=== PATIENT | female | born 1995 | race Caucasian/White ===

== ENCOUNTER 2019-09-30 13:33 | Emergency (ER) | payer SELFPAY ==
[~2019-09-30] VITALS: Ht 152.4 cm; Wt 57.7 kg
--- NOTE | 2019-09-30 14:49 | NUR ---
PT WALKED BACK FROM LOBBY TO ROOM AT THIS TIME. NO ACUTE DISTRESS NOTED.
--- NOTE | 2019-09-30 14:52 | NUR ---
REPORT RECEIVED FROM RENU BENITEZ. PLAN OF CARE DISCUSSED
--- NOTE | 2019-09-30 15:03 | NUR ---
THIS IS A 24 YO FEMALE COMING IN FOR FATIGUE, NAUSEA, ABD "PRESSURE"/BLOATING, AND CONSTIPATION FOR 3-4 DAYS. DENIES CHANGES IN DIET, HAS NOT BEEN AROUND ANYONE SICK RECENTLY. A&OX4, ABDOMEN IS SOFT AND SLIGHTLY DISTENDED. NON TENDER TO PALPATION. C/O INDIGESTION, NO RELIEF FROM MEDICATIONS (HAS TAKEN TUMS AND PRILOSEC OTC). SPO2 AND BP MONITORING IN PLACE, PATIENT AMBULATORY WITH STEADY GATI TO RESTROOM, UA CUP PROVIDED. FSBS 110
[2019-09-30] MEDS ORDERED: MAALOX/HYOSCYAMINE/LIDOCAINE 45 ML BTL PO ONE (15:30)
[2019-09-30] MEDS ORDERED: MAALOX/HYOSCYAMINE/LIDOCAINE 45 ML BTL ONE (15:37)
[2019-09-30 15:40] LABS: MICROSCOPIC AUTO
[2019-09-30 15:43] LABS: BASOPHILS # (AUTO) 0.02 x10^3/uL (0-0.1); BASOPHILS % (AUTO) 0 % (0-1); EOSINOPHILS # (AUTO) 0.17 x10^3/uL (0-0.4); EOSINOPHILS % (AUTO) 3 % (1-7); LYMPHOCYTES # (AUTO) 1.54 x10^3/uL (1-3.4); LYMPHOCYTES % (AUTO) 28 % (22-44); MD NO; MEAN CORPUSCULAR HEMOGLOBIN 29.1 pg (27.0-34.8); MEAN CORPUSCULAR HGB CONC 33.4 g/dL (32.4-35.8); MEAN CORPUSCULAR VOLUME 87.3 fL (80-100); MEAN PLATELET VOLUME 7.8 fL (7.4-10.4); MONOCYTES # (AUTO) 0.42 x10^3/uL (0.2-0.8); MONOCYTES % (AUTO) 8 % (2-9); NEUTROPHILS # (AUTO) 3.39 x10^3/uL (1.8-6.8); NEUTROPHILS % (AUTO) 61 % (42-75); PLATELET COUNT 279 x10^3/uL (130-400); RED BLOOD COUNT 4.75 x10^6/uL (3.82-5.3); RED CELL DISTRIBUTION WIDTH 12.3 % (9.6-15.2)
[2019-09-30 15:49] LABS: ALANINE AMINOTRANSFERASE 26 U/L (12-78); ALBUMIN 3.3 g/dL (3.4-5.0); ANION GAP 3 mmol/L (5-15); CALCIUM 8.3 mg/dL (8.5-10.1); CHLORIDE 109 mmol/L (98-107); CREATININE 0.92 mg/dL (0.55-1.02)
--- NOTE | 2019-09-30 15:52 | NUR ---
PATIENT MEDICATED PER EMAR, TOLERATED WELL
[2019-09-30 15:54] LABS: ALKALINE PHOSPHATASE 43 U/L (45-117); BILIRUBIN,TOTAL 0.3 mg/dL (0.2-1.0)
[2019-09-30 16:10] VITALS: BP 113/78
--- NOTE | 2019-09-30 16:46 | NUR ---
TO ROOM FOR RECHECK
--- NOTE | 2019-09-30 17:29 | NUR ---
Patient given discharge instructions and they have confirmed that they understand the instructions. Patient ambulatory with steady gait.
== END 2019-09-30 17:33 | disposition home or self-care (01) ==
LOC: ED 16:08
DX: K29.00 Acute gastritis without bleeding (principal); R10.13 Epigastric pain; R11.2 Nausea with vomiting, unspecified; K59.00 Constipation, unspecified
CPT/HCPCS: 74021; 80053; 81001; 82962; 83690; 84703; 85025; 99284

== ENCOUNTER 2020-02-28 05:11 | Emergency (ER) | payer BC ==
[~2020-02-28] VITALS: Ht 152.4 cm; Wt 56.9 kg
[2020-02-28] MEDS ORDERED: BIRTH CONTROL PO (05:24)
--- NOTE | 2020-02-28 05:26 | NUR ---
PT. TO ED WITH C/O SUDDEN ONSET VB WHILE LIFTING BOXES AT WORK YESTERDAY. PT. REPORTS "MY PERIODS ARE ALWAYS REGULAR, I JUST HAD IT LAST WEEK SO IT'S ABNORMAL FOR ME TO BE BLEEDING NOW". PT. REPORTS SEVERE ABD CRAMPING YESTERDAY AND AGAIN THIS AM. STATES TAKES CONTROL DAILY. HX OF 3 MISCARRIAGE'S IN THE PAST. PT. VERY TEARFUL. WARM BLANKETS PROVIDED.
[2020-02-28] MEDS ORDERED: KETOROLAC 30 MG/1 ML ONE (05:54)
--- NOTE | 2020-02-28 05:55 | NUR ---
PT. OUT OF ROOM FOR IMAGING. AWAITING RETURN.
[2020-02-28] MEDS ORDERED: KETOROLAC 30 MG/1 ML IM ONE (06:00)
--- NOTE | 2020-02-28 06:16 | NUR ---
PT. MEDICATED PER MAR. LAB AT DRAWING BLOOD.
--- NOTE | 2020-02-28 06:26 | NUR ---
STRAIGHT CATH UA COLLECTED PER ORDER; PT. TOLERATED WELL. SAMPLE WALKED TO LAB. PT. AMBULATORY TO BR WITH STEADY GAIT AFTERWARDS.
[2020-02-28 06:30] LABS: BASOPHILS % (AUTO) 1 % (0-1); EOSINOPHILS % (AUTO) 6 % (1-7); LYMPHOCYTES % (AUTO) 43 % (22-44); MEAN CORPUSCULAR HEMOGLOBIN 29.3 pg (27.0-34.8); MEAN PLATELET VOLUME 7.8 fL (7.4-10.4); MONOCYTES % (AUTO) 7 % (2-9); NEUTROPHILS % (AUTO) 44 % (42-75); PLATELET COUNT 254 x10^3/uL (130-400); RED CELL DISTRIBUTION WIDTH 12.1 % (9.6-15.2)
[2020-02-28 06:36] VITALS: BP 119/83
[2020-02-28 06:38] LABS: MD NO
[2020-02-28 06:52] LABS: MICROSCOPIC NOT IND
--- NOTE | 2020-02-28 06:55 | NUR ---
REPORT RECEIVED FROM MARIE SEARS. PT RESTING ON [employer] W/ CALL LIGHT IN REACH AND SIDE RAILS UPX2. JIMMY UNGER. AWAITING US RESULTS.
--- NOTE | 2020-02-28 06:56 | NUR ---
BS REPORT TO RENU STOUT.
--- NOTE | 2020-02-28 07:21 | NUR ---
Patient given discharge instructions and they have confirmed that they understand the instructions. Patient ambulatory with steady gait.
== END 2020-02-28 07:22 | disposition home or self-care (01) ==
LOC: ED 06:30
DX: N93.9 Abnormal uterine and vaginal bleeding, unspecified (principal); R10.2 Pelvic and perineal pain; R10.30 Lower abdominal pain, unspecified
CPT/HCPCS: 36415; 76830; 81003; 84702; 85025; 86901; 96372; 99284; J1885